=== PATIENT | female | born 1975 | race Caucasian/White ===

== ENCOUNTER 2019-10-20 09:29 | Observation (INO) | payer BC ==
[2019-10-20] MEDS ORDERED: SODIUM CHLORIDE 0.9% 1000ML 1,000 ML IVS ONE (09:49)
[2019-10-20] MEDS ORDERED: DEXAMETHASONE INJ 10 MG/ML VIAL IV ONE (10:00)
[2019-10-20] MEDS ORDERED: raNITIdine HCL INJ 25 MG/ML VIAL IV ONE (10:00)
[2019-10-20] MEDS ORDERED: LIDOCAINE 1% 10 ML VIAL INJ ONE (10:00)
[2019-10-20] MEDS ORDERED: PROPOFOL 200 MG/20 ML VIAL IV ONE (10:00)
[2019-10-20] MEDS ORDERED: SODIUM CHLORIDE 0.9% 50 ML VIAL INJ ONE (10:00)
[2019-10-20] MEDS ORDERED: PIPERACILLIN/TAZOBACTAM 3.375 GM in SODIUM CHLORIDE 0.9% 100ML 100 ML IVPB ONE (10:54)
--- NOTE | 2019-10-20 11:00 | ED.PDOC ---
History of Present Illness - General Chief Complaint: Abdominal Pain Stated Complaint: Abdominal pain Time Seen by Provider: 10/20/19 09:34 Source: patient Exam Limitations: no limitations - History of Present Illness Initial Comments: The patient is a 43-year-old female presented to the emergency room secondary to epigastric and right upper quadrant pain intermittent over the last 6 days. She has had some nausea but no real vomiting. No fever. It is worse with eating. No syncope. No lower abdominal pain. Last oral intake was around 6 AM this morning and was minimal. She reports decreased liquid intake as well over the past few days. She does have a history of thalassemia. Timing/Duration: other - 6 days Severity: moderate Improving Factors: nothing Worsening Factors: eating Associated Symptoms: loss of appetite, malaise, nausea/vomiting Allergies/Adverse Reactions: Allergies Aspirin Adverse Reaction (Verified 10/20/19 09:34) Other Has thalassemia; avoids ASA Home Medications: Ambulatory Orders Turmeric (Curcuma Longa) [Turmeric Curcumin] 500 mg PO DAILY 10/20/19 Review of Systems - Review of Systems Constitutional: States: malaise EENTM: States: no symptoms reported Respiratory: States: no symptoms reported Cardiology: States: no symptoms reported Gastrointestinal/Abdominal: States: abdominal pain, nausea Genitourinary: States: no symptoms reported Musculoskeletal: States: no symptoms reported Skin: States: no symptoms reported Neurological: States: no symptoms reported Endocrine: States: no symptoms reported All other Systems: No Change from Baseline Past Medical History (General) - Patient Medical History Hx Stroke: No Hx Congestive Heart Failure: No Hx Diabetes: No Hx MRSA: No - Vaccination History Hx Influenza Vaccination: No Hx Pneumococcal Vaccination: No - Social History Hx Tobacco Use: No Hx Alcohol Use: Yes - Infrequent Hx Substance Use: No - Female History Patient is a Female of Child Bearing Age (10 -59 yrs old): Yes Patient : No Family Medical History - Family History Mother Family History: No Known Living Status: Still Living Physical Exam - Physical Exam General Appearance: Alert, Comfortable, No apparent distress Eye Exam: bilateral normal Ears, Nose, Throat: hearing grossly normal, normal ENT inspection Neck: full range of motion, supple Respiratory: lungs clear, normal breath sounds, no respiratory distress, no accessory muscle use Cardiovascular/Chest: normal peripheral pulses, regular rate, rhythm, no edema Peripheral Pulses: radial,right: 2+, radial,left: 2+ Gastrointestinal/Abdominal: soft, other - Mild to moderate right upper quadrant tenderness to palpation. No definite rebound. 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 Common bile duct was 4 mm. Gallbladder wall thickness is 8 mm with some edema. No pericholecystic fluid. Laboratory Tests 10/20/19 10/20/19 10/20/19 09:50 09:50 09:50 WBC 4.9 RBC 6.47 H* Hgb 12.6 Hct 40.2 MCV 62.1 L MCH 19.5 L MCHC 31.4 L RDW 16.6 H Plt Count 150 MPV 9.3 Absolute Neuts (auto) 3.20 Absolute Lymphs (auto) 1.40 Absolute Monos (auto) 0.30 Absolute Eos (auto) 0.10 Absolute Basos (auto) 0.00 Neutrophils % 64.7 Lymphocytes % 27.3 Monocytes % 5.2 Eosinophils % 2.4 Basophils % 0.4 Normal RBC Morphology Stain quality accept Sodium 139 Potassium 4.0 Chloride 105 Carbon Dioxide 25 Anion Gap 13.0 BUN 13 Creatinine 0.63 BUN/Creatinine Ratio 20.6 H Random Glucose 75 Serum Osmolality 276.3 Calcium 8.8 Total Bilirubin 0.8 AST 25 ALT 24 Alkaline Phosphatase 47 Serum Total Protein 7.0 Albumin 4.1 Globulin 2.9 Albumin/Globulin Ratio 1.4 Amylase 57 Lipase 36 Serum HCG, Qual Negative Urine Color Urine Appearance Urine pH Ur Specific [place] Urine Protein Urine Glucose (UA) Urine Ketones Urine Blood Urine Nitrite Urine Bilirubin Urine Urobilinogen Ur Leukocyte Esterase Urine RBC Urine WBC Ur Epithelial Cells Urine Bacteria 10/20/19 10:29 WBC RBC Hgb Hct MCV MCH MCHC RDW Plt Count MPV Absolute Neuts (auto) Absolute Lymphs (auto) Absolute Monos (auto) Absolute Eos (auto) Absolute Basos (auto) Neutrophils % Lymphocytes % Monocytes % Eosinophils % Basophils % Normal RBC Morphology Sodium Potassium Chloride Carbon Dioxide Anion Gap BUN Creatinine BUN/Creatinine Ratio Random Glucose Serum Osmolality Calcium Total Bilirubin AST ALT Alkaline Phosphatase Serum Total Protein Albumin Globulin Albumin/Globulin Ratio Amylase Lipase Serum HCG, Qual Urine Color Yellow Urine Appearance Clear Urine pH 5.5 Ur Specific [place] 1.025 Urine Protein Negative Urine Glucose (UA) Negative Urine Ketones Trace Urine Blood Negative Urine Nitrite Negative Urine Bilirubin Negative Urine Urobilinogen 0.2 Ur Leukocyte Esterase Negative Urine RBC 0 Urine WBC 0 Ur Epithelial Cells 5-10 Urine Bacteria Rare Progress - Progress Progress: 10/20/19 11:00 The patient is a 43-year-old female presented to emergency room secondary to what appears to be acute cholecystitis. The patient is being started on Zosyn as per general surgery's request. She has been made n.p.o. She is currently having minimal symptoms. She is receiving a liter of IV fluids. She does have a history of thalassemia. Admit for operative care and further intervention. Vital signs are stable. Laboratory work is otherwise reassuring. darrell [email or web address] [phone] Departure - Departure Clinical Impression: Acute cholecystitis Disposition: Admit Patient Departure Forms: ED Discharge - Pt. Copy, Patient Portal Self Enrollment Referrals: Timothy Salcido MD [Primary Care Provider] - 1-2 Weeks Home Medications: Ambulatory Orders Turmeric (Curcuma Longa) [Turmeric Curcumin] 500 mg PO DAILY 10/20/19 Decision To Admit - Decistion To Admit Decision to Admit Reason: Medical Nature Decision to Admit Date: 10/20/19 Decision to Admit Time: 11:02
[2019-10-20] MEDS ORDERED: PIPERACILLIN/TAZOBACTAM 3.375 GM VIAL IVPB ONE ×3 (11:04→19:30)
[2019-10-20] MEDS ORDERED: SODIUM CHLORIDE 0.9% 100ML 100 ML IVPB ONE ×2 (11:05→19:31)
[2019-10-20] MEDS ORDERED: BUPIVACAINE 0.5% W/EPI 30 ML VIAL INJ ONE ×3 (12:14→12:50)
[2019-10-20] MEDS ORDERED: DEXMEDETOMIDINE HCL 200 MCG/2 ML INJ IV ONE (12:42)
[2019-10-20] MEDS ORDERED: KETAMINE HCL 100 MG/ML VIAL ONE (12:42)
[2019-10-20] MEDS ORDERED: MIDAZOLAM INJ 2 MG/2 ML VIAL ONE (12:42)
[2019-10-20] MEDS ORDERED: fentaNYL CITRATE INJ 50 MCG/ML AMP ONE ×2 (12:42→14:12)
[2019-10-20] MEDS ORDERED: ROCURONIUM BROMIDE 10 MG/ML VIAL ONE (12:43)
[2019-10-20] MEDS ORDERED: LACTATED RINGERS 1,000 ML ONE (12:47)
[2019-10-20] MEDS ORDERED: IOPROMIDE INJ 300 MG/ML 50 ML IV ONE (12:50)
[2019-10-20] MEDS ORDERED: ACETAMINOPHEN IV 1000MG 100 ML ONE (13:39)
[2019-10-20] MEDS ORDERED: SUGAMMADEX SODIUM 200 MG/2 ML VIAL IV ONE (13:39)
--- NOTE | 2019-10-20 14:28 | RAD ---
EXAM DESCRIPTION: Fluoroscopy Up to 1Hr CLINICAL HISTORY: LAP LUZ WITH IOC IMPRESSION: 2 fluoroscopic image/s were acquired by the referring physician intraoperatively. These are low contrast resolution scanned in images of printed fluoroscopic pictures acquired within the operating room. No gross complicating process is demonstrated. Please refer to surgical report for specific details. Fluoroscopy time less than 1 minute. Electronically signed by: Wallace Acosta MD 10/20/2019 2:26 PM [facility]
--- NOTE | 2019-10-20 14:47 | CONS ---
DATE OF CONSULTATION: 10/20/19 REASON FOR CONSULTATION: Acute cholecystitis. HISTORY OF PRESENT ILLNESS: This is a 43-year-old with a history of abdominal pain, epigastric, right upper quadrant. She recalls a similar episode years ago, maybe 5 when she was . She was in Radiology getting evaluated and ultrasound showed signs of cholecystitis. The pain has been in the right upper quadrant. She denies any fevers or chills. It has been there for 5 or 6 days. Nausea, no vomiting. It was worse with eating. No history of acholic stools or scleral icterus. PAST MEDICAL HISTORY: Report of thalassemia, but otherwise no significant medical problems. ALLERGIES: None. FAMILY HISTORY: Noncontributory. SOCIAL HISTORY: The patient denies any illicit habits. REVIEW OF SYSTEMS: CONSTITUTIONAL: No fevers, no chills. HEENT: No headache, visual changes, sore throat. RESPIRATORY: No cough or wheeze. CARDIOVASCULAR: No chest pain or palpitations. GASTROINTESTINAL: As above. GENITOURINARY: No frequency, dysuria or hematuria. EXTREMITIES: No complaints. PHYSICAL EXAMINATION: VITAL SIGNS: Afebrile. Vital signs are normal. GENERAL: The patient is conscious, awake, alert and well oriented, in no distress. HEENT: Normocephalic, atraumatic. Pupils equal and reactive. Sclerae anicteric. Oral mucosa is moist. NECK: Supple. No adenopathy, jugular venous distention or thyromegaly. CHEST: Clear bilaterally. No wheezing or crackles. HEART: Regular rate and rhythm. ABDOMEN: Soft. She has mild right upper quadrant tenderness with a mild Alberts's sign. No evidence of diffuse peritonitis. No CVA tenderness. EXTREMITIES: No cyanosis, clubbing or edema. LABORATORY: White blood cell count 5, hematocrit 40, platelet count 150. CMP shows amylase and lipase normal. HCG negative. Liver function tests normal. RADIOLOGY: Gallbladder ultrasound reads cholecystitis with cholelithiasis, gallbladder wall thickening and edema. No evidence of common duct stone. IMPRESSION: 1. Acute cholecystitis. PLAN: We will consent the patient and take her for a laparoscopic cholecystectomy. [id number]
[2019-10-20] MEDS ORDERED: HYDROcodone 5MG/APAP 325MG 1 EA TAB PO PRN (14:56)
[2019-10-20] MEDS ORDERED: SODIUM CHLORIDE 0.9% (FLUSH) 10 ML SYG IV PRN (14:56)
[2019-10-20] MEDS ORDERED: ONDANSETRON INJ 4 MG/2 ML VIAL IV PRN (14:56)
--- NOTE | 2019-10-20 14:57 | OP ---
DATE OF PROCEDURE: 10/20/19 PREOPERATIVE DIAGNOSIS: 1. Acute cholecystitis. POSTOPERATIVE DIAGNOSIS: 1. Acute cholecystitis. PROCEDURE: 1. Laparoscopic cholecystectomy with intraoperative cholangiogram. Difficult case, modifier 21 for extreme inflammation. SURGEON: Rafa Purdy MD. ANESTHESIA: General. FINDINGS: There is a lot of inflammation, very dilated duct with large stone stuck in the duct. Cholangiogram showed normal anatomy throughout without filling defect. COMPLICATIONS: None. ESTIMATED BLOOD LOSS: Minimal. CONDITION: Stable. PLAN: Admit. SPECIMEN: Gallbladder. INDICATION: This is a 43-year-old woman who presented to the Emergency Room after being seen in Radiology after having some pain and identified to have evidence of acute cholecystitis on her x-ray. The patient was consented for the procedure. PROCEDURE: General anesthesia was induced. The patient was prepped and draped in sterile fashion. Marcaine 0.5% with epinephrine was used at all incision sites. While maintaining upward traction, a steffi was made near the base of the umbilicus. Veress needle was introduced. There was free flow of fluid into the peritoneal cavity which was insufflated to an appropriate level with CO2 gas. The 5 mm trocar was placed followed by the camera. There was no evidence of bleeding or bowel injury. The patient was positioned and subxiphoid and lateral ports were placed under direct visualization without difficulty. The gallbladder was quite distended. X-rays were taken. It was grasped and retracted superiorly and laterally. The infundibulum was grasped. The anatomy was not clearly visualized due to inflammation. We took a while to dissect it out, going up to the peritoneal edges both medially and laterally to get some room. Once we finally isolated the duct, it was quite large and then we identified large stones in it. The gallbladder was distended. At this time, I decompressed it from the top and there was hydrops with white fluid coming out. That a little better delineated what we had and there were indeed large stones going down to the mid distal duct. I made a ductotomy to try to get that stone out, but it would not move, so we were able then to free up enough cystic duct assuredly to make a ductotomy lower to this. The cholangiocatheter was introduced. The cholangiogram revealed the above normal findings. The catheter was removed. Three clips were placed on the distal duct and two proximal. The duct was ligated and the gallbladder was then carefully dissected off the fossa and removed in the EndoCatch bag having to extend the incision slightly. The fossa was examined. It remained hemostatic. The clips were intact. There was no bleeding or bile leak. The subxiphoid fascia was then closed with 0 Vicryl using the suture passer. It was airtight and non-bleeding. The remaining trocars were removed. There was no bleeding from the trocar sites. The wounds were irrigated and closed with Monocryl. Dressings were applied. The patient was awakened and taken to Recovery. [facility][id number]
[2019-10-20] MEDS ORDERED: IV SET AND CAP CHANGE INJ INJ SCH (15:00)
[2019-10-20] MEDS ORDERED: DEX 5% W/NACL 0.45% 1000ML 1,000 ML IVS ONE (15:01)
[2019-10-20] MEDS ORDERED: MEPERIDINE HCL 50 MG/ML VIAL ONE (15:23)
[2019-10-20] MEDS ORDERED: PIPERACILLIN/TAZOBACTAM 3.375 GM in SODIUM CHLORIDE 0.9% 100ML 100 ML IVPB SCH (15:30)
[2019-10-20] MEDS: PIPERACILLIN/TAZOBACTAM 3.375 GM in SODIUM CHLORIDE 0.9% 100ML 100 ML IVPB SCH ×2 (17:59→23:40)
[2019-10-20] MEDS: MORPHINE SULFATE INJ 10 MG/ML VIAL IV PRN ×2 (18:41→21:18)
[2019-10-21] MEDS ORDERED: PIPERACILLIN/TAZOBACTAM 3.375 GM VIAL IVPB ONE (00:14)
[2019-10-21] MEDS ORDERED: SODIUM CHLORIDE 0.9% 100ML 100 ML IVPB ONE (00:15)
[2019-10-21] MEDS: MORPHINE SULFATE INJ 10 MG/ML VIAL IV PRN ×2 (00:41→05:06)
[2019-10-21] MEDS: PIPERACILLIN/TAZOBACTAM 3.375 GM in SODIUM CHLORIDE 0.9% 100ML 100 ML IVPB SCH (05:12)
[2019-10-21 06:15] VITALS: TEMP 98.2; O2SAT 100
[2019-10-21] MEDS ORDERED: DEX 5% W/NACL 0.45% 1000ML 0 ML IVS ONE (07:55)
[2019-10-21] MEDS ORDERED: SODIUM CHLORIDE 0.9% (FLUSH) 10 ML SYG IV SCH (09:00)
--- NOTE | 2019-10-21 10:12 | CONS ---
SUPERVISING PHYSICIAN: Rafa Clayton MD DATE OF CONSULTATION: 10/20/19 HISTORY OF PRESENT ILLNESS: This is a 43-year-old female who came to the Emergency Room due to some epigastric and right upper quadrant pain that had started for approximately six days. She had nausea for several days, but did not have any vomiting. The pain was really intense and it became much worse this morning. She saw Bibi Pavon and an ultrasound was done which showed 1) Cholecystitis with cholelithiasis. There was gallbladder wall thickening and edema. No alex fluid around the gallbladder. Tender with transducer pressure. Common bile duct normal caliber. 2) Mild hepatomegaly with steatosis. Normal vasculare and smooth capsule with no ascites. Normal ultrasound of the pancreas. Normal caliber of the abdomen aorta proximally. 3) Increased echogenicity in heterogeneity in the cortical tissues. No hydronephrosis or echogenic stones. She was sent to the Emergency Room where she worked up to have cholecystectomy. Dr. Purdy was consulted and she went directly from the Emergency Room to surgery. She had no intraoperative complications other than Dr. Purdy reported that her gallbladder had extensive disease and he felt she would benefit from staying overnight in the hospital. I saw the patient postoperatively on the Medical/Surgical Floor. PAST MEDICAL HISTORY: 1. Thalassemia. PAST SURGICAL HISTORY: 1. Deviated septum repair. 2. Jaw surgery as a teenager. OUTPATIENT MEDICATIONS: None. ALLERGIES: She cannot have anything with aspirin due to her thalassemia. She also can have no gluten or dairy. SOCIAL HISTORY: She is . She lives in [place]. She sees Dr. Salcido and Bibi Pavon. She denies any tobacco, ETOH or illicit drug use. REVIEW OF SYSTEMS: As per history of present illness. PHYSICAL EXAMINATION: VITAL SIGNS: Temperature 98.4. Heart rate 67. Blood pressure 106/66. Respiratory rate 19. O2 saturation 91% on room air. GENERAL: This is a 43-year-old female patient lying in her hospital bed. She is in moderate pain. HEENT: Normocephalic, atraumatic. Pupils are equal and reactive. Oropharynx is clear. NECK: Supple without mass. CARDIOVASCULAR: Regular rate and rhythm. GASTROINTESTINAL: Abdomen is soft. She has her bandages from her laparoscopic procedure. She is quite tender in the epigastric and right upper quadrant area. Bowel sounds are positive. SKIN: Warm and dry. BACK: Deferred. NEUROLOGIC: Awake, alert and oriented times three. Cranial nerves II-XII are grossly intact as tested. LABORATORY: WBCs 4.9, RBCs 6.47, hemoglobin 12.6, hematocrit 4.2. Metabolic panel was basically within normal limits. HCG negative. Urinalysis was unremarkable. She has pending blood cultures. Surgical and radiology reports are per the EMR. IMPRESSION: 1. Acute cholecystitis with cholelithiasis status post cholecystectomy per Dr. Purdy, general surgeon, postoperative day 0. 2. Thalassemia. PLAN: She has been placed in observation. She will advance her diet as tolerated per Dr. Purdy's orders. She is on Zosyn while in the hospital. I do not believe he wants her going home on any antibiotics. She does not take any medications, so we will hold off on that. She has been encouraged to get up and walk in the hallway. We will follow as needed. #[id number] [facility]
[2019-10-21 11:43] VITALS: BP 112/75
== END 2019-10-21 11:30 | disposition home or self-care (01) ==
LOC: AMB 09:29 → ER 09:29 → EDSTATUS 14:08 → MS 17:05
PROVIDERS: ADMIT Surgery; ATTEND Surgery
DX: K80.12 Calculus of gallbladder with acute and chronic cholecystitis without obstruction (principal); D56.9 Thalassemia, unspecified; R11.0 Nausea; K76.0 Fatty (change of) liver, not elsewhere classified; R16.0 Hepatomegaly, not elsewhere classified
CPT/HCPCS: 47563; 00790; 96361 ×2; 96366; 96365; 96375; 96376 ×2; J3010 ×2; J2175; J2270 ×4; J2405; J2543 ×4; J3490; J7030; J1100; J2250; J2780; A4216; J7050 ×3; J7799; J7120; 80053; 36415 ×3; 82150; 81001; 85025 ×2; 87040 ×2; 84703; 83690; 76000; 94760 ×2; 99285; G0378

== ENCOUNTER → 2019-10-20 | Outpatient (CLI) | payer BC ==
--- NOTE | 2019-10-20 09:44 | US ---
EXAM DESCRIPTION: Gall Bladder: ULTRASOUND. CLINICAL HISTORY: RIGHT UPPER QUADRANT PAIN COMPARISON: None. TECHNIQUE: Transabdominal scanning: Moses-scale and Doppler modes. FINDINGS: Gallbladder: Multiple echogenic stones, mobile with patient change in position, with no significant dilation of the lumen. Minimal fluid in the gallbladder wall but not around the gallbladder. Wall thickening 8 mm . Tender with Transducer pressure. Common bile duct: caliber 4.0 mm within normal limits. Liver: Minimally increased echogenicity; contour liver capsule smooth where seen. No fluid around the liver. Intrahepatic biliary ducts normal caliber. Doppler hepatopedal flow portal vein.. Long axis right lobe 18.4 cm. Pancreas: normal size Normal echogenicity. Duct not seen. Aorta: 1.8 cm normal caliber. Right kidney: 9.2 cm long axis. Normal cortical thickness. Increased echogenicity of the cortex but less than the liver. No echogenic stones or hydronephrosis.. IMPRESSION: 1. Cholecystitis with cholelithiasis; gallbladder wall thickening and edema. No alex fluid around the gallbladder. Tender with transducer pressure. Common bile duct normal caliber. 2. Mild hepatomegaly with steatosis. Normal vascularity and ducts. Smooth capsule with no ascites. Normal ultrasound of the pancreas and normal caliber of the abdominal aorta proximally. 3. Increased echogenicity in heterogeneity in the cortical tissues. No hydronephrosis or echogenic stones. CRITICAL COMMUNICATION: The critical value was discussed directly by phone by Dr. Suresh, with ROHIT Capps, at approximately 925 hours, on 10/20/2019 Electronically signed by: Klaus Suresh MD 10/20/2019 9:42 AM LITHOGRAPHIC PLATE [employer]ER
== END ==
LOC: US 08:34
PROVIDERS: ATTEND Nurse Practitioner Family
DX: K80.00 Calculus of gallbladder with acute cholecystitis without obstruction (principal); K76.0 Fatty (change of) liver, not elsewhere classified

== ENCOUNTER → 2020-01-11 | Outpatient (CLI) | payer BC ==
--- NOTE | 2020-01-11 10:01 | RAD ---
4 radiographs left knee Indication: PAIN IN LEFT KNEE Comparison: None. Findings: Mild to moderate narrowing medial knee compartment with mild narrowing lateral and patellofemoral compartments. Small knee effusion. No acute fracture. MRI could better evaluate for internal derangement as clinically indicated. Electronically signed by: Rizwan Monaco MD 01/11/2020 10:00 AM CDT
--- NOTE | 2020-01-11 10:01 | RAD ---
Single frontal radiograph pelvis Indication: PAIN IN LEFT AND RIGHT HIP Comparison: None. Impression: No acute fracture identified. Mild bilateral hip osteoarthritis with joint space narrowing and tiny osteophytes. Mild pubic symphysis osteoarthritis. Lower lumbar disc disease partially visualized. Electronically signed by: Rizwan Monaco MD 01/11/2020 10:00 AM CDT
--- NOTE | 2020-01-11 10:02 | RAD ---
4 radiographs right knee Indication: PAIN IN RIGHT KNEE Comparison: None. Findings: Mild to moderate narrowing medial knee compartment with mild narrowing lateral and patellofemoral compartments. Small knee effusion. No acute fracture. MRI could better evaluate for internal derangement as clinically indicated. Electronically signed by: Rizwan Monaco MD 01/11/2020 10:01 AM CDT
== END ==
LOC: RAD 09:21
PROVIDERS: ATTEND Orthopaedic Surgery
DX: M25.861 Other specified joint disorders, right knee (principal); M25.862 Other specified joint disorders, left knee; M25.461 Effusion, right knee; M25.462 Effusion, left knee; M16.0 Bilateral primary osteoarthritis of hip; M51.86 Other intervertebral disc disorders, lumbar region

== ENCOUNTER → 2020-06-20 | Outpatient (CLI) | payer BC | LOC: LAB.O 12:51 | PROVIDERS: ATTEND Orthopaedic Surgery | DX: M25.562 Pain in left knee (principal); M25.561 Pain in right knee ==